=== PATIENT | female | born 1985 | race Caucasian/White ===

== ENCOUNTER 2025-05-02 21:57 | Emergency (ER) | payer OTHER, SELFPAY ==
--- OUTSIDE RECORDS SUMMARY | 2025-05-01 23:59 | XMS_ITS | Continuity of Care Document ---
Author Organization [facility] [address] [place], [place] [id number] Care Team Providers Care Head Char Filter Tank Tender Name Role Phone Ilir Philippe Primary Care Physician Encounter [facility] Financial Number [id number] Date(s): 05/01/25 - 05/01/25 [facility] [address] [place], [place] [id number] Encounter Diagnosis Adult general medical examination(Discharge Diagnosis) - 05/01/25 Migraine(Discharge Diagnosis) - 05/01/25 Anxiety(Discharge Diagnosis) - 05/01/25 Health education/counseling(Discharge Diagnosis) - 05/01/25 Screening for lipid disorders(Discharge Diagnosis) - 05/01/25 Screening for cervical cancer(Discharge Diagnosis) - 05/01/25 Normal weight with body mass index (BMI) of 24.0 to 24.9 in adult(Discharge Diagnosis) - 05/01/25 Advanced directives, counseling/discussion(Discharge Diagnosis) - 05/01/25 Wrist pain(Discharge Diagnosis) - 05/01/25 Discharge Disposition: Home or Self Care Attending Physician: Ilir Philippe MD Encounter Type: Clinic Allergies, Adverse Reactions, Alerts No Known Allergies Assessment and Plan Future Appointments Appointment Date:05/03/2026 03:30:00 PM Scheduled Provider:Ilir Philippe MD Location:[facility] 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 Complete Physical Exam Immunizations Given and Recorded Vaccine Date Status Refusal Reason SARS-CoV-2 (COVID-19) mRNA BNT-162b2 vax 09/17/20 Recorded SARS-CoV-2 (COVID-19) mRNA BNT-162b2 vax 1 08/27/20 Recorded Tetanus, Diphtheria, acel Pertussis Tdap 07/08/14 Recorded 1Result Comment: shot 1 Medications Carpal Tunnel Wrist Stabilizer See Instructions, 1 each, 1 each CTS stabiliaer right wrist pain M25.539, Print Requisition, Instructions Replace Required Details, Supply Start Date: 05/01/25 Status: Ordered Quantity: 1.0 Unit: Repeat number: 1 Indications: Pain in unspecified wrist; Digestive Advantage Daily Probiotics 0 Start Date: 05/02/24 Status: Ordered Repeat number: 1 SUMAtriptan 100 mg oral tablet See Instructions, 0, take 1 tablet by oral route after onset of migraine, may repeat dose in 2 hours if needed, Instructions Replace Required Details Start Date: 07/05/19 Status: Ordered Repeat number: 1 Vitamin D3 0 Start Date: 05/15/21 Status: Ordered Repeat number: 1 Zinc mg, 0 Start Date: 05/15/21 Status: Ordered Repeat number: 1 Problem List Condition Confirmation Course Effective Dates Status Health at Informant Allergy to mold Confirmed 11/23/17 Active Anxiety Confirmed 11/23/17 Active Depression Confirmed Active Genital herpes simplex Confirmed 11/23/17 Active Hamstring strain Confirmed Active Male infertility Confirmed Active Migraine Confirmed 11/23/17 Active Migraines Confirmed Active Procedures Procedure Date Related Diagnosis Body Site Status REMOVAL OF TONSILS 2007 Comple lalo Vital Signs Most recent to oldest [Reference Range]: 1 Temperature Temporal Artery [35.8-38 Deg C] 36.5 DegC (05/01/25 2:56 PM) Peripheral Pulse Rate [60-100 bpm] 63 bp m (05/01/25 2:56 PM) Blood Pressure [90-139/60-90 mm Hg] 109/ 69mm Hg (05/01/25 2:56 PM) Height 159 cm (05/01/25 2:56 PM) Weight 61.6 kg (05/01/25 2:56 PM) Social History Social History Type Response Alcohol Current some day alc ohol user, occasionally Substance Abuse Never drug user Smoking Status Never smoker;Never; Tobacco Cessation Counseling Requested N/A entered on: 05/15/21 Sex Sex Representation Female (finding) Hospital Discharge Instructions Patient Education 05/01/2025 16:00:38 ANXIETY REACTION Anxiety??Reaction Anxiety is the feeling we all get when we think something bad might happen. It is a normal responseto stress. It most often causes only a mild reaction. But it can interfere with daily life when anxiety is more severe. In some cases, you may not know what you???re anxious about. Anxiety seems to have both mental and physical triggers. You may have stress from home and family. Or work and social relationships. Anxiety tends to run in families. This may mean it???s linked to genes. During an anxiety reaction, you may feel: ???Helpless ???Nervous ???Depressed ???Grouchy Your body may show signs of anxiety in many ways. You may have: ???Dry mouth ???Shakiness ???Dizziness ???Weakness ???Trouble breathing ???Fast breathing ???Chest pressure ???Sweating ???Headache ???Nausea ???Diarrhea ???Tiredness ???Inability to sleep ???Sexual problems Home care Try to find those things that set off anxiety in your life. They may not be obvious. They may include: ???Daily hassles of life. This can include traffic jams, missed appointments, or car troubles. ???Major life changes. This means both good changes, such as a new baby or job promotion. This can also mean tough life changes, such as loss of a job or loss of a loved one. ???Overload. This means feeling that you have too many responsibilities. And that you can't take care of all of them. ???Feeling helpless. You may feel you don???t have any control or choices. You may feel that your problems can't be solved. Notice how your body reacts to stress. This will help you take action before the stress sets off anxiety. When you can, make changes to reduce the sources of your stress. But stress in life often can't be prevented. It is important to learn how to manage stress to reduce anxiety. There are many proven methods that will reduce your anxiety. These include: ???Exercise ???Good nutrition ???Getting enough sleep ???Relaxation methods ???Breathing exercises ???Visualization ???Biofeedback ???Meditation ???Counseling ???Medicine For more information about this, talk with your healthcare provider. Or check online or at your local library or bookstore. You'll find many books and audiobooks on this subject. Follow-up care If you feel your anxiety is not getting better with self-help, call your healthcare provider. Or make an appointment with a counselor. You may need short-term counseling or medicine to help you manage anxiety. Call 911 Call 911 if any of the following occur: ???Trouble breathing ???Confusion ???Drowsiness or trouble waking up ???Fainting ???Rapid heart rate ???Seizure ???New chest pain that becomes more severe, lasts longer, or spreads into your shoulder, arm, neck,jaw, or back Call or text [phone] if you have thoughts of harming yourself or others. You will be connected to trained crisis counselors at the [employer] Suicide Prevention Lifeline. An online chat option is also available at www.suicidepreLoyalis.org. You can also call Lifeline at 873-034-SFHI (490-712-7953). Lifeline is free and available 26/01. When to get medical advice Call your healthcare provider right away if any of the following occur: ???Symptoms that don't improve or get worse, such as feelings of hopelessness or overwhelming sadness ???Severe headache not eased by rest and mild pain medicine The National Suicide Prevention Lifeline is available at 098-975-QOCJ (966-412-1762). The Lifeline is available 26/01 and provides free and confidential support. The Lifeline also has an online chat at www.suicideSurface Tension.org. ?? The [employer]. All rights reserved. This information is not intended as a substitute for professional medical care. Always follow your healthcare professional's instructions. 05/01/2025 16:00:34 Adult Immunization Schedule Adult Vaccine Schedule Vaccine How often Disease prevented Who needs it Influenza Every year Flu. This can be especially dangerous to older adults or people with immune disorders. All adults COVID-19* 1 to 2 doses, depending on vaccine, with boosters as advised Coronavirus disease 2019 (COVID-19). This is a respiratory illness caused by a new (novel) coronavirus. It can be especially dangerous to some people. All adults *Getting a COVID-19 vaccine and boosters as advised are important to protect against COVID-19. Talk with your healthcare provider about vaccines and boosters. Tetanus, diphtheria (Td); or Tetanus, diphtheria, and pertussis (Tdap)* One dose of Tdap, then one dose of Td as a booster every 10 years Tetanus??(lockjaw), a disease that causes muscles to spasm Diphtheria,??an infection that causes fever, weakness, and breathing problems Pertussis, also known as whooping cough. This is a highly contagious disease that can cause seriousillness. All adults *This vaccine should be given during each , no matter how many years since the last vaccine. The vaccine increases protection for??your . A is too young to get the vaccine. But newborns have the highest risk for severe illness and from pertussis. Varicella (Ciara) One series of 2 injections Chickenpox. This is a disease that causes itchy skin bumps, fever, and tiredness. It can lead to scarring, pneumonia, or brain inflammation. Adults who don???t have evidence of immunity This vaccine should not be given to women. Women should avoid for??4 weeks after the vaccine. Human papillomavirus (HPV) 2 to 3 doses depending on age at first dose or condition ?Cervical cancer, caused by some types of HPV ???Vaginal and vulvar cancer ???Penile cancer ???Head and neck cancers ???Anal cancer ???Genital warts All people through age 26. Some adults ages 27 to 45 years may decide to get the HPV vaccine after talking with their provider, if they were not fully vaccinated when they were younger. Ask your healthcare provider if this applies to you. Pneumococcal vaccine 2 kinds of vaccines help prevent pneumococcal disease: PCV (PCV13, PCV15, and PCV20) and PPSV23 vaccines Pneumococal disease, which is cause by Streptococcus pneumonia bacteria. This can cause many types of infections in the lungs, brain and spinal cord, blood, sinuses, and middle ear. Pneumococcal disease can lead to . ?All adults 65 years and older. Talk with your healthcare provider about your situation and whichtype of vaccine is best for you. ???Some people ages 18 to 64 should also get pneumococcal vaccine depending on certain health conditions or risk factors. Talk with your healthcare provider about your situation and risk. Vaccine How often Disease prevented Who needs it Recombinant zoster vaccine (RZV) 2 doses, the second dose given 2 to 6 months after the first Herpes zoster (shingles), a painful rash marked by blisters ?Adults ages 50 and older. This is given even if you've had shingles before or had a previous zoster live vaccine (ZVL). The live vaccine is no longer available in the [place] ???Some adults ages 19 and older with a weak immune system may be advised to get RZV. Talk with your healthcare provider about your situation. ?? Measles, mumps, rubella (MMR) 1 or 2 doses, for ages 19 through 49; 1 dose for ages 50 and older if at risk. An extra dose may beadvised in areas of mumps outbreaks. Measles,??a disease marked by red spots, fever, and coughing Mumps,??a disease that causes swelling in the salivary glands. It may affect the ovaries or testes. Rubella??(Italian measles). This is a form of measles that can cause defects if a woman catches it. Adults born in 1957 and later who are not known to be immune to measles, mumps, or rubella. Ask your healthcare provider if you need a second dose. This vaccine should not??be given to ??women. Women should??prevent for??4??weeks after vaccination. Meningococcal Two types of vaccines are available depending on age and medical situation: ?Meningococcal conjugate (MenACWY) ???Serogroup B vaccines (MenB) ?? 1 or more doses depending on vaccine type and condition Meningococcal disease (bacterial meningitis). This is inflammation of the membrane covering the brain and spinal cord. It can lead to . Adults with immune deficiencies or at high risk of exposure. Also, first-year college students living in residential housing (if not vaccinated at age 16 or older) and recruits. Ask your healthcare provider about meningococcal disease and which vaccine may be right for you. Hepatitis A (HepA) One series of 2 to 3 injections depending on the vaccine Hepatitis A. This is an infection that can result in acute liver inflammation and yellow skin and whites of the eyes (jaundice). Adults with risk factors, such as clotting disorders or chronic liver disease, and adults with highrisk of exposure. This includes men who have sex with men, injection drug users, and travelers to countries where hepatitis A is common. Hepatitis B (HepB) One series of 2, 3, or 4 doses depending on the vaccine, age, risk, or condition Hepatitis B. This is an infection that causes chronic, severe liver disease. Adults with high risk of exposure, such as healthcare providers and sanitation workers, and adults with diabetes. This includes people living with HIV if not already immune. Travelers??? diseases As needed Infections, such as cholera, typhoid, yellow fever, polio, rabies, meningococcal disease, hepatitisA, hepatitis B Adults traveling out of the country. Required vaccines will vary, depending on the country you visit. Check the CDC website at www.cdc.gov/travel. Based on the CDC National Immunization Program recommendations for people ages 19 years and older, [place], 2022 ?? 0477-7692 The [employer]. All rights reserved. This information is not intended as a substitute for professional medical care. Always follow your healthcare professional's instructions. Reason for Referral Referred By Effective Date Status Indication Reason Referred by: Ilir Philippe MD [id number]:55:48. 000-05:00 Active Pain in unspecified wrist Dr Ben Huitron wrist pain, referred to: Anthony Martinez DO Note * Event Display: Consent/Registration Forms * Event Display: Consent/Registration Forms * Event Display: ROI_Correspondence Authored Date: [id number] * Event Display: ROI_Correspondence Authored Date: [id number] Internal medicine Outpatient Note * Ilir Philippe MD: PERFORM Event Display: Internal Medicine Office/Clinic Note Authored Date: [id number] Patient Information Name:RADHA ALEXANDER Address: [address] [place] [address] Sex:Female Date of :1985 Emergency Contact:DANIA ALEXANDER Location:[place] [address] Registration Date and Time:05/01/2025 14:55 CDT Primary Care Physician: Ilir Philippe MD, Attending Physician: Ilir Philippe MD, Chief Complaint CPE Pt has only seen financial institution manager- Dr. Rossy Randall. History of Present Illness PMH?? Migraines,acne Flu??vaccine?? negative COVID vaccine 2021 Gardisil vaccine?? middle school PSH?? Negative Ob/Gyne?A0?? up to date with??pap smear??, no mammogram as of yet-no FH of?? breast cancer Trauma History fracture finger but no concussions Psychiatric History mild anxiety Meds see list Allergies?NKA Social History?? 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 and began to??play??tennis?? again?? Review of Systems ?CONSTITUTIONAL ? Fever?No.?? Night sweats?No.?? Chills?No.?? Fatigue?No.?? Decreased appetite?No.?? Have you lost or gained weight in the past year?No.?? Recent Illness?No.?? Headaches??No.? EYES ? Change in Vision?No.?? Glasses or contacts?No.?? Red eyes?No.?? Eye pain?No.?? Eye drainage?No.?? Dry Eyes?No.? ENT ? Problems hearing?No.?? Ear pain?No.?? Sore Throat?No.?? Nose bleeds?No.?? Hoarse voice?No.?? Ringing in Ears?No.?? Mouth Ulcers?No.?? Sinus pain?No.?? Post nasal drip?No.?? Runny nose?No.?? Congestion?No.?? Oral lesions?No.?? Teeth/Gum Issues?No.?? Dry Mouth?No.? CARDIOVASCULAR ? Chest Pain?No.?? Leg pain with walking?No.?? Short of breath at night?No.?? Swelling in Legs?No.?? Skipping heart beats?No.?? Palpitations?No.?? Syncope (Fainting)?No.?? Shortness of breath on exertion?No.?? Radiation of pain to neck, jaw, arms, or back?No.? RESPIRATORY ? Cough?No.?? Coughing up blood?No.?? Shortness of Breath while resting?No.?? Wheezing?No.? Sputum?No.?? Tobacco use??No. ??GASTROINTESTINAL ? Blood in stool?No.?? Constipation?No.?? Diarrhea?No.?? Hemorrhoids?No.?? Swallowing problems?No.?? Reflux?No.?? Nausea?No.?? Vomiting?No.?? Hernia?No.?? Abdominal pain?No.? GENITOURINARY ? Problems urinating?No.?? Blood in Urine?No.?? Pain with urination?No.?? Incontinence?No.?? Urination at night?No.?? Frequent urination?No.?? Trouble emptying bladder?No.? MUSCULOSKELETAL ? Neck pain?No.?? Gout?No.?? Injury to limbs?No.?? Joint Pain?No.?? Joint stiffness?No.?? Locking joints?No.?? Back pain?No.?? Red or swollen joints?No.?? Muscle pain?No.?? Leg cramps?No.? SKIN ? Change in mole?No.?? Skin itching?No.?? Rashes?No.?? Dry skin?No.?? Hair Loss?No.?? Bruising?No.? HEMATOLOGY/ONCOLOGY ? Anemia?No.?? Swollen lymph nodes?No.?? Bruising?No.?? Bleeding?No.? NEUROLOGY ? Dizziness?No.?? Headaches?No.?? Imbalance?No.?? Numbness in Hands/Feet?No.?? Seizures?No.?? Tremors?No.?? Weakness?No.?? Snoring?No.?? Problem focusing?No.? ENDOCRINE ? Problems with heat?No.?? Problems with cold?No.?? Swelling in Neck?No.?? Frequent urination?No.?? Excessive thirst?No.?? Changes in hair?No.? PSYCHIATRIC ? Depression?No.?? Feel like hurting someone?No.?? Feel like hurting yourself?No.?? Problems with memory?No.?? Anxiety?No.?? Problems concentrating?No.?? Problems sleeping?No.?? Delusions?No.?? Hallucinations?No.? Vitals and Measurements Vital Signs Height: 159 cm Height Inches Conversion: 62.6 Weight: 61.6 kg Weight in Pounds (kg conversion): 135.5 Body Surface Area: 1.6494 m2 Body Mass Index: 24.37 kg/m2 Temperature Temporal Artery: 36.5 DegC Systolic Blood Pressure: 109 mm Hg Diastolic Blood Pressure: 69 mm Hg Peripheral Pulse Rate: 63 bpm Oxygen Saturation: 99 % Primary Pain Location: Lower arm Primary Pain Comments: wrist to elbow HRA Pain Present: Yes Physical Exam GENERAL ?General Appearance: unremarkable, well-appearing, well-developed, well-nourished, noacute distress. ? EYES ?Conjunctiva: unremarkable, no redness, bilateral eyes.?Sclera: unremarkable, anicteric.?Visual Chavez: grossly unremarkable, bilateral? HEENT ? Head: normocephalic,atraumatic ?Ears: unremarkable, tympanic membranes normal bilaterally.?No nasal sinus tenderness,nasal mucosa pink and moist ?Mouth: moist mucous membranes ?Throat: clear, no erythema, no exudate.? NECK ?Carotid bruit: none, bilateral.?Cervical lymph nodes: no lymphadenopathy on palpation.?General: supple.?JVD: none.?Thyroid: unremarkable, no thyromegaly, non-tender, no nodules palpated. ? CHEST ?Chest wall: non-tender.? HEART ?Murmurs: none and no rubs, gallops or clicks.?Rate: regular.?Rhythm: regular.??S1,S2 ? LUNGS ?Auscultation: CTA bilaterally, no wheezing/rhonchi/rales.? ABDOMEN ?Bowel sounds: normoactive.?Bruits: none.?Distention: none.?General: soft.?Liver, Spleen: not palpable, no hepatosplenomegaly (HSM).?Masses: none, non-pulsatile masses.?Tenderness: none.? BACK ?General: unremarkable.? GENITOURINARY - FEMALE ?Exam deferred to financial institution manager; patient understands that all MANAGER SWITCH and breast exam follow-up is via the MANAGER SWITCH.?? LYMPHATICS ?Axillary: none, bilateral.?Cervical: none, bilateral.?Epitrochlear: none, bilateral.?Inguinal: none, bilateral.?Supraclavicular: none, bilateral.?? EXTREMITIES ?Clubbing:??no.?Cyanosis:??no.?Edema: none.?? FOOT EXAM ?Deformities none.?Skin (of exposed body parts)-normal.?? SKIN ?General: warm, dry.?Rash: none.?Mental Status: alert.?Mood/Affect: well kempt; normal affect and mood congruent; good eye contact; no hallucinations, delusions or paranoia; normal speech tempo and thought content.?Speech: unremarkable, clear.? NEUROLOGICAL ?Cognition: normal.?Cranial Nerves: CN's II-XII grossly intact.?Gait: normal.? Assessment/Plan 1.??Adult general medical examination Ordered: CBC with Differential, 05/01/25 15:42:00 CDT, Blood, ROUTINE, Routine, 05/01/25 15:43:00 CDT, NurseCollect, Print Label, Adult general medical examination, Hold Until Collected, Gerda ISLAS COMPREHENSIVE METABOLIC PANEL - Ref Lab Only Q, 05/01/25 15:42:00 CDT, Blood, ROUTINE, Routine, 05/01/25 15:43:00 CDT, Nurse Collect, Print Label, Adult general medical examination, Hold Until Collected, Gerda ISLAS Lipid Panel(Non-Fasting Lipid Panel), 05/01/25 15:42:00 CDT, Blood, ROUTINE, Routine, 05/01/25 15:43:00 CDT, Nurse Collect, Print Label, Adult general medical examination, Hold Until Collected, Patient Non-Fasting, No, [facility] TSH (Highly Sensitive), 05/01/25 15:43:00 CDT, Blood, ROUTINE, Routine, 05/01/25 15:43:00 CDT, Nurse Collect, Print Label, Adult general medical examination, Hold Until Collected, [facility] Urinalysis & Microscopic, 05/01/25 15:43:00 CDT, Urine - Voided, ROUTINE, Routine, 05/01/25 15:43:00 CDT, Nurse Collect, Print Label, Adult general medical examination, [facility] ?? 2.??Migraine Stable can use sumatriptan if need be ?? 3.??Anxiety Will come off the??any medications??for depression for now and see how she does ?? 4.??Wrist pain She just use a??mouse at work??so this may be a carpal tunnel but she complains she has been playing tennis and her started wrist??also hurt her elbow so she is using a tennis elbow brace??I will first see Dr. Ben Huitron??for evaluation Ordered: Carpal Tunnel Wrist Stabilizer (DME)(Carpal Tunnel Wrist Stabilizer), See Instructions Referral Ambulatory, Orthopedic, Dr Ben Huitron wrist pain, Anthony Martinez DO, [facility] [place], [address], [address] [address]., 05/01/25 15:37:00 CDT, Urgent ?? 5.??Advanced directives, counseling/discussion I mailed a form for living will ?? 6.??Health education/counseling Commended a flu shot ?? 7.??Screening for lipid disorders Check lipids ?? 8.??Screening for cervical cancer reMember yearly Pap smear ?? 9.??Normal weight with body mass index (BMI) of 24.0 to 24.9 in adult Up with diet and exercise ?? Patient Instructions Recommend that she eat properly and exercise regularly??she should??use sunscreen while on the sun for protracted periods of time. ??She should use a seatbelt while driving and she should see a dentist and chief lending officer on a regular yearly basis Follow Up Follow Up with??Ilir Philippe MD When??In 1 year Why: And as need be Where: [address] [place] [address] [place] [id number] Problem List/Past Medical History Ongoing Allergy to mold Anxiety Depression Genital herpes simplex Hamstring strain Male infertility Migraine Migraines Historical Acute upper respiratory infection Bronchitis Tendonitis Viral upper respiratory tract infection Procedure/Surgical History ???REMOVAL OF TONSILS (2007) Medications New Carpal Tunnel Wrist Stabilizer (DME) (Carpal Tunnel Wrist Stabilizer)1 each CTS stabiliaer right wrist pain M25.539. Refills: 0. Unchanged bacillus coagulans-calcium carbonate (Digestive Advantage Daily Probiotics) cholecalciferol (Vitamin D3) SUMAtriptan (SUMAtriptan 100 mg oral tablet)take 1 tablet by oral route after onset of migraine, may repeat dose in 2 hours if needed. zinc sulfate (Zinc) Discontinued bifidobacterium-lactobacillus (Probiotic Formula oral capsule)1 capsule(s) By mouth daily. multivitamin with iron (Iron 100 Plus oral tablet) predniSONE (predniSONE 10 mg oral tablet)1 tablet(s) By mouth daily for 5 day(s). Refills: 0. Immunizations Vaccine Date Status SARS-CoV-2 (COVID-19) mRNA BNT-162b2 vax 09/17/2020 Recorded SARS-CoV-2 (COVID-19) mRNA BNT-162b2 vax 08/27/2020 Recorded Tetanus, Diphtheria, acel Pertussis Tdap 07/08/2014 Recorded Allergies NKA Social History Alcohol Current some day alcohol user, occasionally, 05/15/2021 Substance Abuse Never drug user, 05/15/2021 Tobacco Never smoker, Smokeless Tobacco use: Never. N/A Cessation Counseling., 05/15/2021 Family History ?Sister ?Negative ?Brother ?Negative ?Brother ?Negative ?Sister ?Negative ?Mother ?Positive ?Asthma ?Brother ?Positive ?Diabetes ?Grandfather ?Positive ?Hypertension ?Father ?Positive ?Alive and well ?Mother ?Positive ?Alive and well ?Father ?Positive ?Kidney stones... ?Mother ?Positive ?Eczema ?Father ?Positive ?Diabetes ? POC Results Event Name?? Event Result?? Date/Time?? Oxygen Saturation 99 % 05/01/25 14:56:00 ? Voice to Text Technology Disclaimer This note may contain text inserted via Dragon or other voice to text assistive technology and lead process engineer, variances may occur. Patient Care team information Care Team Personnel Name: Rossy Randall M.D. Position: [facility] FAX ONLY - MD NOT ON STAFF Member Role: OBGYN Address: [address] [facility] [address] [place] [address]- Telecom: Name: Ilir Philippe MD Position: Physician - Internal Medicine Member Role: Primary Care Physician Address: [address] [facility] [address] [place], [place] [id number] Telecom: Name: Yannick Carney Member Role: Control Operator Flow Coat Address: [address] [place] [address] [address] [place], [place] [address]- Name: Ilir Philippe MD Position: Physician - Internal Medicine Med Service: Furniture Installer Head Char Filter Tank Tender Role: Attending Physician Address: [facility] [facility] [address] [place], [place] [id number] Telecom: Care Team Related Persons Name: DANIA ALEXANDER Insurance Providers Guarantor name: RADHA PEGUERO [facility] Plan Information #: 1 Payer: [facility] Payer Identifier: [id number] Member Number: [id number] Group Number: [id number] Subscriber Identifier: [id number] Relationship to Subscriber: self Coverage Type: Managed Care (private) or private health insurance (indemnity), not otherwise specified Coverage Verification Date: 25 Telecom: Address: [facility] [address] [place], [place] [id number]
--- NOTE | ~2025-05-02 | XR_ITS ---
XR hand LT min 3V 05/02/2025 22:29 INDICATION: Laceration. Evaluate for foreign body. PROCEDURE: 3 views left hand COMPARISON: No prior studies for comparison. FINDINGS: Fracture, dislocation or subluxation is not identified. The soft tissues appear within normal limits. No foreign bodies are identified. IMPRESSION: 1: NO ACUTE BONE OR JOINT ABNORMALITY IDENTIFIED. Reviewed, dictated and finalized at location B.
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
[2025-05-02 22:03] VITALS: BP 120/76; PULSE 73; RESP 18; TEMP 36.7; O2SAT 100
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
[2025-05-02] MEDS: TETANUS,DIPHTHERIA,AC PERTUSSIS ADULT (0.5 ML) BOOSTRIX IM (22:37)
[2025-05-02] MEDS: KETOROLAC 30 MG/ML VIAL (*BKC) IM (22:37)
[2025-05-02] MEDS: LIDO 1%/EPINEPHRINE 1:100,000 20 ML VIAL 10 ML INFILTRATE (22:38)
== END 2025-05-02 23:41 | disposition home or self-care (01) ==
PROVIDERS: Emergency Provider Student in an Organized Health Care Education/Training Program
DX: S61.511A Laceration without foreign body of right wrist, initial encounter (principal); S61.412A Laceration without foreign body of left hand, initial encounter; Z23 Encounter for immunization; W25.XXXA Contact with sharp glass, initial encounter
CPT/HCPCS: 12002; 73110; 73130; 90471; 90715; 96372; 99283; 99284; J1885; J2004